=== PATIENT | female | born 1955 | race Native Hawaiian/Other Pacific Islander ===

== ENCOUNTER 2019-10-03 11:06 | Outpatient (CLI) | payer BC, SELFPAY ==
--- NOTE | 2019-10-03 11:22 | XR_ITS ---
WS: [id number] Left hip, 2 views, 10/03/2019 Clinical Data: DEGENERATIVE JOINT DISEASE, LEFT HIP PAIN Comparison: None. Findings: No fractures or dislocations are seen. The left hip joint is intact. There is a lateral acetabular li p which can indicate mild osteoarthritis The soft tissues are not remarkable. The adjacent pelvis is normal. The left SI joint and pubic symphysis are unremarkable. There is a fecal impaction. XR/XR hip LT 2-3V wo/w pel* [id number] Impression: Mild osteoarthritis of left hip.
== END 2019-10-03 11:07 | disposition home or self-care (01) ==
LOC: RADOUTREAD 11:13
PROVIDERS: PCP Electrodiagnostic Medicine; Visit Provider Electrodiagnostic Medicine
DX: M16.12 Unilateral primary osteoarthritis, left hip (principal)
CPT/HCPCS: 73502

== ENCOUNTER → 2021-03-11 13:31 | Outpatient (BNVA) | payer OTHER, SELFPAY | PROVIDERS: PCP Electrodiagnostic Medicine; Visit Provider Emergency Medicine | DX: Z20.822 Contact with and (suspected) exposure to COVID-19 (principal) | CPT/HCPCS: 87635 ==

== ENCOUNTER → 2021-08-31 13:20 | Outpatient (BNVA) | payer OTHER, SELFPAY | PROVIDERS: PCP Electrodiagnostic Medicine; Visit Provider Nurse Practitioner Family | DX: Z20.822 Contact with and (suspected) exposure to COVID-19 (principal); R68.89 Other general symptoms and signs | CPT/HCPCS: 87400; 87426; 87635 ==

== ENCOUNTER 2025-03-05 13:52 | Outpatient (CLI) | payer MEDICARE, OTHER, SELFPAY ==
--- NOTE | 2025-03-05 14:01 | CTR_ITS ---
PROCEDURE INFORMATION: Exam: CT Abdomen And Pelvis Without And With Contrast Exam date and time: 03/05/2025 3:28 PM Age: 69 years old Clinical indication: Localized; Prior surgery; Surgery date: 6+ months; Surgery type: RT kidney, hyst; Left side renal stones, right nephrectomy, lower abdominal pain x 3 days TECHNIQUE: Imaging protocol: Computed tomography of the abdomen and pelvis without and with contrast. 3D rendering (Not supervised by radiologist): MIP and/or 3D reconstructed images were created by the technologist. Radiation optimization: All CT scans at this facility use at least one of these dose optimization techniques: automated exposure control; mA and/or kV adjustment per patient size (includes targeted exams where dose is matched to clinical indication); or iterative reconstruction. Contrast material: OMNI 350; Contrast volume: 100 ml; Contrast route: INTRAVENOUS (IV); COMPARISON: CR XR KUB [id number] 02/18/2025 12:37 PM RADIATION DOSE METRICS: Total DLP (mGy-cm): 3139.95 FINDINGS: Liver: Normal. No mass. Gallbladder and biliary ducts: Normal. No calcified stones. No ductal dilation. Pancreas: Normal. No ductal dilation. Spleen: Normal. No splenomegaly. Adrenal glands: Normal. No mass. Kidneys and ureters: Right nephrectomy. 2.8 x 2.6 cm staghorn calculus in the left renal pelvis with minimal pelvocaliectasis. No distal calculus. Additional nonobstructing left renal calculus also observed. Stomach and bowel: Unremarkable. No obstruction. No mucosal thickening. Appendix: No evidence of appendicitis. Intraperitoneal space: Unremarkable. No free air. No significant fluid collection. Vasculature: Unremarkable. No abdominal aortic aneurysm. Lymph nodes: Unremarkable. No enlarged lymph nodes. Urinary bladder: Unremarkable as visualized. Reproductive: Hysterectomy. Bones/joints: Unremarkable. No acute fracture. Soft tissues: Unremarkable. CT/CT abdomen pelvis wo/w [id number] IMPRESSION: Left renal calculi including a staghorn calculus. Minimal pelvocaliectasis on the left side.
[2025-03-05] MEDS: iohexol 350 mg/mL 500 mL Btl (per mL) PO (15:31)
[2025-03-05] MEDS: iohexol 350 mg/mL 500 mL Btl (per mL) IV (15:32)
== END 2025-03-05 13:53 | disposition home or self-care (01) ==
LOC: RAD 13:54
PROVIDERS: PCP Electrodiagnostic Medicine; Visit Provider Electrodiagnostic Medicine
DX: N20.0 Calculus of kidney (principal)
CPT/HCPCS: 74178